=== PATIENT | male | born 2005 | race Hispanic/Latino ===

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

== ENCOUNTER 2024-09-05 18:12 | Inpatient (IN) | payer BC, MEDICAID ==
[~2024-09-05] VITALS: Ht 182.9 cm; Wt 169.7 kg
[~2024-09-05 18:12] MED LIST: ACET-66 PO
[2024-09-05] MEDS: 0.9%NACL 1000ML 1,000 ML IV ONE (18:40)
[2024-09-05] MEDS: ZOSYN 3.375GM +NS 50ML IV ONE (18:40)
[2024-09-05] MEDS: acetaMINOPHEN 500 MG TABLET PO ONE (18:40)
[2024-09-05 18:44] LABS: BASOPHILS # (AUTO) 0.05 K/uL (0.00-0.20); BASOPHILS % (AUTO) 0.2 % (0.0-5.0); EOSINOPHILS # (AUTO) 0.01 K/uL (0.00-0.70); HEMATOCRIT 45.6 % (42-54); IMMATURE GRANULOCYTE ABSOLUTE 0.15 K/uL (0-1); LYMPHOCYTES # (AUTO) 1.3 K/uL (1.0-4.8); LYMPHOCYTES % (AUTO) 5.2 % (21.0-51.0); MEAN CORPUSCULAR HEMOGLOBIN 28.9 pg (27.0-33.0); MEAN CORPUSCULAR VOLUME 85.1 fL (80-100); MONOCYTES # (AUTO) 1.1 K/uL (0.1-1.0); MONOCYTES % (AUTO) 4.4 % (3.0-13.0); NEUTROPHILS # (AUTO) 22.4 K/uL (1.8-7.7); NEUTROPHILS % (AUTO) 89.6 % (40.0-77.0); PLATELET COUNT (AUTO) 278 K/uL (130-400); RED BLOOD CELL COUNT(AUTO) 5.36 MIL/uL (4.50-6.20); RED CELL DISTRIBUTION WIDTH 13.4 % (11.0-15.5); WHITE BLOOD COUNT (AUTO) 25.1 K/uL (4.8-10.8)
[2024-09-05 19:05] LABS: CREATININE 1.2 mg/dL (0.5-1.3); POTASSIUM 3.9 mmol/L (3.5-5.1)
[2024-09-05 19:46] VITALS: TEMP 102.3
--- NOTE | 2024-09-05 19:50 | ERN ---
General Chief Complaint: Cellulitis Stated Complaint: RASH Time Seen by MD: 18:14 Time Seen by Midlevel: 18:14 Source: patient History of Present Illness Initial Comments Patient is a 18-year-old male with no significant past medical history presenting to the emergency department with fever, chills, and redness to his right lower extremity that started three weeks ago. Patient states he initially noticed the redness and swelling three weeks ago but took some antibiotics is grandma gave him. Initially the redness and swelling improved but over the last week it has progressively worsened. Today he reports developing fever and an increased redness to his right lower extremity so he decided to report to the ER for further evaluation. Allergies: Coded Allergies: No Known Drug Intolerances (Unverified Allergy, Unknown, 07/06/21) Home Meds Active Scripts Acetaminophen (Tylenol) 500 Mg Tab, 500 MG PO TID for 5 Days, #20 TAB Prov:SEEVN SCOTT SIDER 07/06/21 Past Medical History Past Medical History: Asthma Past Surgical History: None ROS Dictation CONSTITUTIONAL: Negative except for HPI HEAD/FACE: Negative except for HPI EENT: Negative except for HPI RESPIRATORY: Negative except for HPI GASTROINTESTINAL/ABDOMINAL: Negative except for HPI GENITOURINARY: Negative except for HPI MUSCULOSKELETAL: Negative except for HPI INTEGUMENTARY: Negative except for HPI NEUROLOGICAL/PSYCH: Negative except for HPI HEMATOLOGIC/LYMPHATIC: Negative except for HPI All Systems Negative, Except as noted above. 13 point review of systems assessed and all negative except for above. Physical Exam Physical Exam Dictation Vital Signs reviewed General Appearance: Alert, oriented x 3, no acute distress, ill-appearing, febrile Eyes: PERRL, pink conjunctivas, eyelid no trauma, anterior chamber with arcus senilis. Ears: Pinnas intact and no signs of trauma or erythema ear canals clear and no discharge TM no erythema Nose: No discharge, no bleeding. Oropharynx: Mouth normal, tongue pink, pharynx clear,no erythema, tonsils no exudates, no abscesses noted, mucous membrane moist Neck: Supple, non-tender, no thyromegaly, no masses, no JVD, no bruits Breast:Deferred Chest:No tenderness, no crepitus, no paradoxical movement, no retractions Lungs:Clear, well-ventilated, symmetric, no rales, no wheezing, no rhonchi, no stridor, good breath sounds bilaterally Heart: Tachycardic, regular rhythm, no murmur, no gallops Vascular: no peripheral edema, Abdomen: Soft, positive bowel sounds, nondistended, no guarding, nontender, no rebound, no masses no hepatomegaly, no splenomegaly, no Flanagan's sign, no hernias. Rectal: Deferred Genital: Deferred Neurological: Normal speech, motor function intact, sensory function intact Musculoskeletal: Neck nontender, full range of motion, back nontender, full range of motion, Extremities: nontender, full range of motion Skin: Color pink, dry, no turgor, no rash, no lacerations, no abrasions, no contusions. Lymphatic: Deferred Results Laboratory and Microbiology Lab and Micro Result Laboratory Tests Test 09/05/24 18:38 White Blood Count 25.1 K/uL (4.8-10.8) H Red Blood Count 5.36 MIL/uL (4.50-6.20) Hemoglobin 15.5 g/dL (14.0-18.0) Hematocrit 45.6 % (42-54) Mean Corpuscular Volume 85.1 fL (80-100) Mean Corpuscular Hemoglobin 28.9 pg (27.0-33.0) Mean Corpuscular Hemoglobin Concent 34.0 g/dL (32.0-36.0) Red Cell Distribution Width 13.4 % (11.0-15.5) Platelet Count 278 K/uL (130-400) Mean Platelet Volume 10.7 fL (7.5-10.5) H Immature Granulocyte % (Auto) 0.6 % (0-1) Neutrophils (%) (Auto) 89.6 % (40.0-77.0) H Lymphocytes (%) (Auto) 5.2 % (21.0-51.0) L Monocytes (%) (Auto) 4.4 % (3.0-13.0) Eosinophils (%) (Auto) 0.0 % (0.0-8.0) Basophils (%) (Auto) 0.2 % (0.0-5.0) Neutrophils # (Auto) 22.4 K/uL (1.8-7.7) H Lymphocytes # (Auto) 1.3 K/uL (1.0-4.8) Monocytes # (Auto) 1.1 K/uL (0.1-1.0) H Eosinophils # (Auto) 0.01 K/uL (0.00-0.70) Basophils # (Auto) 0.05 K/uL (0.00-0.20) Absolute Immature Granulocyte (auto 0.15 K/uL (0-1) Nucleated Red Blood Cells 0.0 % (0.0-0.19) White Cell Morphology Comment See comments Sodium Level 137 mmol/L (136-145) Potassium Level 3.9 mmol/L (3.5-5.1) Chloride Level 98 mmol/L (101-111) L Carbon Dioxide Level 31 mmol/L (21-32) Blood Urea Nitrogen 11 mg/dL (7-18) Creatinine 1.2 mg/dL (0.5-1.3) Glomerular Filtration Rate Calc 89 mL/min (>90) Random Glucose 112 mg/dL (70-105) H Lactic Acid Level 1.8 mmol/L (0.8-2.5) Total Calcium 9.8 mg/dL (8.5-10.1) Procalcitonin 0.33 ng/mL (0.05-0.5) Labs Reviewed?: Yes MDM MDM: Differential diagnosis: Cellulitis, sepsis, dehydration Rationale: Tests considered and ordered secondary to shared decision making include: Previous outside records reviewed: Old ER visits. Risk of complication and/or morbidity or mortality of patient management: None Medications-Per medication reconciliation Need for hospitalization: Patient does meet criteria for hospitalization. Need for emergency major/minor surgery: No There are no social concerns with this patient. Prescription drug management Prescriptions will include symptomatic care Patient's prior external medical records from other ER visits were reviewed by me as indicated. Prior testing and results from previous visits were reviewed. Prior tests were taken into account with medical decision making and resource utilization, independent historian/historians were used to obtain complete medical history. I independently interpreted the test that were performed, results were reviewed by me and considered findings on radiology if ordered. Medical management and examination interpretation discussions were had by me with other qualified healthcare professionals as indicated for the patient's care. ED Course Orders Procedure Category Date Status Time Cbc With Differential LAB 09/05/24 Complete 18:32 Basic Metabolic Panel LAB 09/05/24 Complete 18:32 Blood Cult DHARMESH 09/05/24 In Process 18:32 Lactic Acid LAB 09/05/24 Complete 18:32 Procalcitonin LAB 09/05/24 Complete 18:32 0.9%Nacl 1000ml (Ns PHA 09/05/24 Complete 1000ml) 19:00 Zosyn 3.375gm+Ns 50ml PHA 09/05/24 Complete (Zosyn 3.375gm+Ns 19:00 Acetaminophen 500mg PHA 09/05/24 Complete Tab (Tylenol 500mg T 19:00 Us Venous Doppler US 09/05/24 Taken Unilateral 19:02 Current Medications Medications (Trade) Dose Ordered Sig/Margaret Route PRN Reason Start Time Stop Time Status Last Admin Dose Admin Acetaminophen (TYLenol 500MG TAB) 1,000 mg ONCE ONCE PO 09/05/24 19:00 09/05/24 19:01 DC 09/05/24 18:40 Piperacillin Sod/ Tazobactam Sod (Zosyn 3.375gm+NS 50ml) 3.375 gm ONCE ONCE IV 09/05/24 19:00 09/05/24 19:01 DC 09/05/24 18:40 Sodium Chloride 1,000 ml @ 0 mls/hr ONCE ONCE IV 09/05/24 19:00 09/05/24 19:01 DC 09/05/24 18:40 Vital Signs Date Time Temp Pulse Resp B/P (MAP) Pulse Ox O2 Delivery O2 Flow Rate FiO2 09/05/24 18:40 102.7 09/05/24 18:37 102.7 120 20 133/48 98 Room Air* 0 21 09/05/24 18:25 102.6 121 20 128/79 100 Room Air 0 DX & DISP Disposition: Inpatient Decision to Admit Date: Sep 05, 2024 Decision to Admit Time: 19:34 Departure Impression: Primary Impression: Sepsis Additional Impressions: Cellulitis of right lower extremity, Leukocytosis Condition: Stable Referrals: NONE (PCP) I have reviewed the case, and I agree with, Diagnosis and Plan I performed the substantive portion of the visit. I have reviewed and personally made and approve the management plan that is documented in the note by myself or the RICH. I acknowledge for responsibility for the patient's management plan. RADHA JOYCE Sep 05, 2024 19:50
[2024-09-05] MEDS ORDERED: PoTASSium chloRIDE 20MEQ ER 20 MEQ ERTAB PO PRN (20:30)
[2024-09-05] MEDS ORDERED: GLUCAGON 1MG KIT 1 MG ML IM PRN (20:30)
[2024-09-05] MEDS ORDERED: PoTASSium chloRIDE 20MEQ/100ML 100 ML IV PRN (20:30)
[2024-09-05] MEDS ORDERED: DEXTROSE 50%-WATER 50 ML DISP.SYRIN IV PRN (20:30)
[2024-09-05] MEDS ORDERED: LACTULOSE 20 GM/30 ML UDCUP PO PRN (20:30)
[2024-09-05] MEDS ORDERED: hydrALAZine 20MG/ML VIAL IV PRN (20:30)
[2024-09-05] MEDS ORDERED: ondanSETRON 4MG INJ IVP PRN (20:30)
[2024-09-05] MEDS ORDERED: PoTASSium chl 10% ELIXIR 20MEQ 20 MEQ/15 ML UDCUP PO PRN (20:30)
[2024-09-05] MEDS ORDERED: HYDROcodone/APAP 5/325 1 TAB TABLET PO PRN (20:30)
[2024-09-05] MEDS ORDERED: VANCOMYCIN PROTOCOL PER PHARMACY IV SCH (20:30)
[2024-09-05] MEDS ORDERED: MAGNESIUM 2GM PREMIX 50ML 50 ML IV PRN (20:30)
[2024-09-05] MEDS ORDERED: acetaMINOPHEN 650 MG SUPPOSITORY RC PRN (20:30)
[2024-09-05] MEDS ORDERED: TEMAZepam 15 MG CAPSULE PO PRN (20:30)
--- NOTE | 2024-09-05 20:31 | HP ---
[facility] HISTORY AND PHYSICAL Date of Service: Sep 05, 2024 Time of Service: 20:30 Attending/supervising physician Dr. Townsend and Dr. Adolfo Middleton HISTORY OF PRESENT ILLNESS: Mr. Cha is a 18-year-old male with history of asthma and obesity who presented to [facility] ED for evaluation of fever, chills, and redness to his right lower extremity that started three weeks ago. The patient stated he initially noticed the redness and swelling three weeks ago but took some antibiotics is grandma gave him. Initially the redness and swelling improved but over the last week it has progressively worsened. Today he reported developing fever and an increased redness to his right lower extremity so he decided to report to the ER for further evaluation. The patient presented to the ED febrile, tachycardic, and appeared ill. ED administered Zosyn 3.375 G, NS1 L, Tylenol 1 g. ED provider request patient be admitted with the diagnosis of cellulitis to the right lower extremity, leukocytosis, and sepsis. I went to assess the patient at bedside. The patient appeared comfortable, in no distress. Right lower extremity does have localized erythema. No drainage noted. I informed patient, grammar, and mother of a labs, diagnostics, and plan of care. I answered their questions. They verbalized understanding and are in agreement with the plan. Plan and assessment as listed below. REVIEW OF SYSTEMS 12-point ROS reviewed with patient. All pertinent positives are mentioned above. Otherwise negative, noncontributory, or non-pertinent. PAST MEDICAL HISTORY: Asthma and obesity PAST SURGICAL HISTORY: None PAST SOCIAL HISTORY: Denied alcohol, tobacco, illicit drug use. FAMILY HISTORY: Morbid obesity Coded Allergies: No Known Drug Intolerances (Unverified Allergy, Unknown, 07/06/21) PHYSICAL EXAM GENERAL APPEARANCE: The patient is awake, alert, and oriented, in no acute cardiopulmonary distress. NEUROLOGICAL: Cranial nerves II-XII grossly intact. Motor is 5/5 in bilateral upper and lower extremities proximal to distal. No sensory deficits. HEENT: Face is symmetric. Pupils are equal and reactive. Extraocular movements are intact. NECK: Supple. No JVD. No thyromegaly. No submental, submandibular, pre- /postauricular, occipital or supraclavicular lymphadenopathy. CHEST: Normal chest expansion. No Telemetry. LUNGS: Absence of any rales, rhonchi or any wheezing. CARDIOVASCULAR: Regular. S1 and S2 normal. No appreciable rubs, murmurs or gallops. ABDOMEN: Obese. Soft, nontender, and nondistended. There is no rebound, voluntary guarding, or rigidity. : Deferred. No Umaña. EXTREMITIES: Non-edematous and not cyanotic. No clubbing. Good capillary refill. Right lower extremity has an area of erythema. SKIN: No skin breakdown. Vital Sign (Last 24 Hours) 09/05/24 09/05/24 18:37 18:40 Temp 102.7 Pulse 120 Resp 20 B/P (MAP) 133/48 Pulse Ox 98 O2 Delivery Room Air* O2 Flow Rate 0 FiO2 21 LABS: Laboratory: Test 09/05/24 18:38 Range/Units White Blood Count 25.1 H 4.8-10.8 K/uL Red Blood Count 5.36 4.50-6.20 MIL/uL Hemoglobin 15.5 14.0-18.0 g/dL Hematocrit 45.6 42-54 % Mean Corpuscular Volume 85.1 80-100 fL Mean Corpuscular Hemoglobin 28.9 27.0-33.0 pg Mean Corpuscular Hemoglobin Concent 34.0 32.0-36.0 g/dL Red Cell Distribution Width 13.4 11.0-15.5 % Platelet Count 278 130-400 K/uL Mean Platelet Volume 10.7 H 7.5-10.5 fL Immature Granulocyte % (Auto) 0.6 0-1 % Neutrophils (%) (Auto) 89.6 H 40.0-77.0 % Lymphocytes (%) (Auto) 5.2 L 21.0-51.0 % Monocytes (%) (Auto) 4.4 3.0-13.0 % Eosinophils (%) (Auto) 0.0 0.0-8.0 % Basophils (%) (Auto) 0.2 0.0-5.0 % Neutrophils # (Auto) 22.4 H 1.8-7.7 K/uL Lymphocytes # (Auto) 1.3 1.0-4.8 K/uL Monocytes # (Auto) 1.1 H 0.1-1.0 K/uL Eosinophils # (Auto) 0.01 0.00-0.70 K/uL Basophils # (Auto) 0.05 0.00-0.20 K/uL Absolute Immature Granulocyte (auto 0.15 0-1 K/uL Nucleated Red Blood Cells 0.0 0.0-0.19 % White Cell Morphology Comment See comments Sodium Level 137 136-145 mmol/L Potassium Level 3.9 3.5-5.1 mmol/L Chloride Level 98 L 101-111 mmol/L Carbon Dioxide Level 31 21-32 mmol/L Blood Urea Nitrogen 11 7-18 mg/dL Creatinine 1.2 0.5-1.3 mg/dL Glomerular Filtration Rate Calc 89 >90 mL/min Random Glucose 112 H 70-105 mg/dL Lactic Acid Level 1.8 0.8-2.5 mmol/L Total Calcium 9.8 8.5-10.1 mg/dL Procalcitonin 0.33 0.05-0.5 ng/mL Current Medications Medications (Trade) Dose Ordered Sig/Margaret Route PRN Reason Start Time Stop Time Status Last Admin Dose Admin Acetaminophen (TYLenol 325MG TAB) 650 mg Q6H PRN PO FEVER/MILD PAIN LEVEL 1-3 09/05/24 20:30 10/05/24 20:29 Acetaminophen (TYLenol 650MG SUPPOSITORY) 650 mg Q6H PRN RC FEVER / MILD PAIN 1-3 IF NPO 09/05/24 20:30 10/05/24 20:29 Acetaminophen/ Hydrocodone Bitart (NORco 5/325MG) 1 tab Q6H PRN PO MILD PAIN (1-3) 09/05/24 20:30 09/10/24 20:29 Cefepime HCl (MAXipime 2 gm vial) 2 gm Q8H IVPB 09/06/24 00:00 09/16/24 00:00 Docusate Sodium (COLace 100MG CAP) 100 mg BID PRN PO c 09/05/24 20:30 10/05/24 20:29 Enoxaparin Sodium (Lovenox) 40 mg DAILY SQ 09/06/24 09:00 10/06/24 08:59 Hydralazine HCl (APRESOLine 20MG INJ) 10 mg Q2H PRN IV SBP GREATER THAN 160 09/05/24 20:30 10/05/24 20:29 Ibuprofen (moTRIN) 600 mg Q6H PRN PO PAIN LEVEL 4 TO 6 09/05/24 20:30 10/05/24 20:29 Lactulose (Constulose 20gm/ 30ml Udcup) 20 gm Q6H PRN PO CONSTIPATION 09/05/24 20:30 10/05/24 20:29 Ondansetron HCl (zoFRAN 4MG INJ) 4 mg Q6H PRN IVP NAUSEA/VOMITING 09/05/24 20:30 10/05/24 20:29 Pantoprazole Sodium (PROTonix 40MG TAB) 40 mg DAILY PO 09/06/24 09:00 10/06/24 08:59 Temazepam (restORIL 15 MG CAP) 15 mg HS PRN PO INSOMNIA/SLEEP 09/05/24 20:30 10/05/24 20:29 Vancomycin HCl (Vancomycin Protocol) 1 each AD IV 09/05/24 20:30 09/19/24 20:29 UNV DIAGNOSTICS / RADIOLOGY: [ ] ASSESSMENT: Right lower extremity cellulitis, POA, temporary responsive to self medicated antibiotic Acute sepsis without septic shock Leukocytosis Hypochloremia Acute kidney injury, GFR 89 Hyperglycemia Obesity, BMI 37.3 PLAN: -Admit to medical floor. -Start vancomycin per pharmacy protocol. -Start cefepime 2 g IV q.8 hours. (ED administered Zosyn 3.375 g) -NS 1 L at 125 mL an hour times one dose. (ED administered 1 L of NS bolus) -PRN medications for: Pain management, fever, hypertension, N/V, constipation. -Glucometer checks AC & HS needed with insulin regular sliding scale coverage as needed. -Blood pressure checks every 4 hours and as needed. -Reconcile home medications once available. - Monitor renal and liver function. -Monitor electrolytes and replace PRN -AM labs: CBC, BMP, mag, phos, TSH, A1C. -GI and DVT prophylaxis: Protonix and Lovenox ADVANCED CARE PLANNING 1. Which of the following were discussed? Hospice Care - No Therapeutic options - Yes Advance Directives - Yes Other discussions - 2. Discussed with who? Patient 3. Voluntary nature of this service was explained to the patient? Yes 4. Amount of time spent - __ over 35 minutes 5. Reviewed by Physician? (if this service was performed by NPP) Yes ATTESTATION BY PHYSICIAN I have seen and examined the patient. I reviewed the documentation, medical decision making, and treatment plan as noted by the advanced practice provider above. I agree with the findings and plan of care. NANCI SPRINGER [facility] Sep 05, 2024 20:31
[2024-09-05] MEDS: VANCOMYCIN 2GM/500 ML BAG 500 ML IV ONE (21:22)
--- NOTE | 2024-09-05 21:38 | HMCIMG ---
ULTRASOUND VENOUS DOPPLER RIGHT LOWER EXTREMITY INDICATION: Pain and swelling. TECHNIQUE: Routine grayscale and color Doppler ultrasound of the right lower extremity veins performed. COMPARISON: None. FINDINGS: Examination provided for interpretation at 9:35 PM on 09/05/2024. The demonstrated veins of the right lower extremity including the common femoral vein, femoral vein, and popliteal vein are associated with normal compressibility, augmentation, and flow. Normal respiratory variation was identified. No evidence for echogenic intraluminal thrombus. Slightly enlarged slightly vascular right groin lymph node retains its normal reniform shape and fatty hilum. IMPRESSION: No evidence for deep venous thrombosis.
[2024-09-05 21:50] VITALS: O2SAT 98
[2024-09-05] MEDS: ibuPROFEN 600 MG TABLET PO PRN (22:12)
[2024-09-06] VITALS (7 sets, daily range): BP systolic 101–145; BP diastolic 63–79; PULSE 63–101; RESP 16–21; TEMP 97.5–99.3; O2SAT 99–100
[2024-09-06] MEDS: ceFEPime HCL 2 GM VIAL IVPB SCH (02:16)
[2024-09-06] MEDS: 0.9%NACL 1000ML 1,000 ML IV ONE (04:44)
[2024-09-06 06:15] LABS: HEMATOCRIT 42.5 % (42-54); MEAN CORPUSCULAR HEMOGLOBIN 28.9 pg (27.0-33.0); MEAN CORPUSCULAR HGB CONC 33.9 g/dL (32.0-36.0); MEAN CORPUSCULAR VOLUME 85.3 fL (80-100); RED BLOOD CELL COUNT(AUTO) 4.98 MIL/uL (4.50-6.20); RED CELL DISTRIBUTION WIDTH 13.6 % (11.0-15.5); WHITE BLOOD COUNT (AUTO) 13.5 K/uL (4.8-10.8)
[2024-09-06 06:38] LABS: CREATININE 0.9 mg/dL (0.5-1.3); MAGNESIUM 1.9 mg/dL (1.80-2.40); PHOSPHORUS 3.3 mg/dL (2.5-4.9); THYROID STIMULATING HORMONE 0.53 uIU/mL (0.36-3.74)
[2024-09-06] MEDS: VANCOMYCIN 1.75 GM/250 ML BAG 250 ML IV SCH (09:32)
[2024-09-06] MEDS: PANTOPrazole 40 MG TAB DR PO SCH (09:32)
[2024-09-06] MEDS: ENOXAPARIN SODIUM 40 MG/0.4 ML SYRINGE SQ SCH (09:33)
--- NOTE | 2024-09-06 14:36 | PN ---
[facility] PROGRESS NOTE Date of Service: Sep 06, 2024 Time of Service: 14:34 SUBJECTIVE: [ ] Mr. Cha is a 18-year-old male with history of asthma and obesity who presented to [facility] ED for evaluation of fever, chills, and redness to his right lower extremity that started three weeks ago. Doppler of the lower extremities no evidence of DVT. 09/06 patient is seen and examined at bedside, case discussed with the RN, no acute events overnight, patient comfortable, no pain to the leg, getting IV fluids, IV antibiotics. Leukocytosis improving, WBC today 13.5. REVIEW OF SYSTEMS 12-point ROS reviewed with patient. All pertinent positives are mentioned above. Otherwise negative, noncontributory, or non-pertinent. PHYSICAL EXAM GENERAL APPEARANCE: The patient is awake, alert, and oriented, in no acute ca rdiopulmonary distress. NEUROLOGICAL: Cranial nerves II-XII grossly intact. Motor is 5/5 in bilateral upper and lower extremities proximal to distal. No sensory deficits. HEENT: Face is symmetric. Pupils are equal and reactive. Extraocular movements are intact. NECK: Supple. No JVD. No thyromegaly. No submental, submandibular, pre- /postauricular, occipital or supraclavicular lymphadenopathy. CHEST: Normal chest expansion. No Telemetry. LUNGS: Absence of any rales, rhonchi or any wheezing. CARDIOVASCULAR: Regular. S1 and S2 normal. No appreciable rubs, murmurs or gallops. ABDOMEN: Obese. Soft, nontender, and nondistended. There is no rebound, voluntary guarding, or rigidity. : Deferred. No Umaña. EXTREMITIES: Non-edematous and not cyanotic. No clubbing. Good capillary refill. Right lower extremity has an area of erythema, improving. SKIN: No skin breakdown. Vital Signs (last 8hr) Date Time Temp Pulse Resp B/P (MAP) Pulse Ox O2 Delivery O2 Flow Rate FiO2 09/06/24 12:00 99.0 86 20 126/77 100 Room Air 09/06/24 08:00 98.4 89 19 112/65 99 Room Air LABS: Laboratory: Test 09/06/24 06:06 09/05/24 18:38 Range/Units White Blood Count 13.5 #H 4.8-10.8 K/uL Red Blood Count 4.98 4.50-6.20 MIL/uL Hemoglobin 14.4 14.0-18.0 g/dL Hematocrit 42.5 42-54 % Mean Corpuscular Volume 85.3 80-100 fL Mean Corpuscular Hemoglobin 28.9 27.0-33.0 pg Mean Corpuscular Hemoglobin Concent 33.9 32.0-36.0 g/dL Red Cell Distribution Width 13.6 11.0-15.5 % Platelet Count 198 # 130-400 K/uL Mean Platelet Volume 10.6 H 7.5-10.5 fL Nucleated Red Blood Cells 0.0 0.0-0.19 % Sodium Level 137 136-145 mmol/L Potassium Level 4.0 3.5-5.1 mmol/L Chloride Level 104 101-111 mmol/L Carbon Dioxide Level 25 21-32 mmol/L Blood Urea Nitrogen 11 7-18 mg/dL Creatinine 0.9 0.5-1.3 mg/dL Glomerular Filtration Rate Calc 125 >90 mL/min Random Glucose 99 70-105 mg/dL Total Calcium 8.5 8.5-10.1 mg/dL Phosphorus Level 3.3 2.5-4.9 mg/dL Magnesium Level 1.90 1.80-2.40 mg/dL Thyroid Stimulating Hormone (TSH) 0.53 0.36-3.74 uIU/mL Immature Granulocyte % (Auto) 0.6 0-1 % Neutrophils (%) (Auto) 89.6 H 40.0-77.0 % Lymphocytes (%) (Auto) 5.2 L 21.0-51.0 % Monocytes (%) (Auto) 4.4 3.0-13.0 % Eosinophils (%) (Auto) 0.0 0.0-8.0 % Basophils (%) (Auto) 0.2 0.0-5.0 % Neutrophils # (Auto) 22.4 H 1.8-7.7 K/uL Lymphocytes # (Auto) 1.3 1.0-4.8 K/uL Monocytes # (Auto) 1.1 H 0.1-1.0 K/uL Eosinophils # (Auto) 0.01 0.00-0.70 K/uL Basophils # (Auto) 0.05 0.00-0.20 K/uL Absolute Immature Granulocyte (auto 0.15 0-1 K/uL White Cell Morphology Comment See comments Lactic Acid Level 1.8 0.8-2.5 mmol/L Procalcitonin 0.33 0.05-0.5 ng/mL Current Medications Medications (Trade) Dose Ordered Sig/Margaret Route PRN Reason Start Time Stop Time Status Last Admin Dose Admin Acetaminophen (TYLenol 325MG TAB) 650 mg Q6H PRN PO FEVER/MILD PAIN LEVEL 1-3 09/05/24 20:30 10/05/24 20:29 Acetaminophen (TYLenol 650MG SUPPOSITORY) 650 mg Q6H PRN RC FEVER / MILD PAIN 1-3 IF NPO 09/05/24 20:30 10/05/24 20:29 Acetaminophen/ Hydrocodone Bitart (NORco 5/325MG) 1 tab Q6H PRN PO MILD PAIN (1-3) 09/05/24 20:30 09/10/24 20:29 Cefepime HCl (MAXipime 2 gm vial) 2 gm Q8H IVPB 09/06/24 00:00 09/16/24 00:00 09/06/24 08:04 2 GM Dextrose (D50w) 50 ml AD PRN IV HYPOGLYCEMIA PROTOCOL 09/05/24 20:30 10/05/24 20:29 Docusate Sodium (COLace 100MG CAP) 100 mg BID PRN PO c 09/05/24 20:30 10/05/24 20:29 Enoxaparin Sodium (Lovenox) 40 mg DAILY SQ 09/06/24 09:00 10/06/24 08:59 09/06/24 09:33 40 MG Glucagon (Glucagon 1mg Kit) 1 mg AD PRN IM HYPOGLYCEMIA PROTOCOL 09/05/24 20:30 10/05/24 20:29 Hydralazine HCl (APRESOLine 20MG INJ) 10 mg Q2H PRN IV SBP GREATER THAN 160 09/05/24 20:30 10/05/24 20:29 Ibuprofen (moTRIN) 600 mg Q6H PRN PO PAIN LEVEL 4 TO 6 09/05/24 20:30 10/05/24 20:29 09/05/24 22:12 600 MG Lactulose (Constulose 20gm/ 30ml Udcup) 20 gm Q6H PRN PO CONSTIPATION 09/05/24 20:30 10/05/24 20:29 Magnesium Sulfate 50 ml @ 0 mls/hr PROTOCOL PRN IV MAGNESIUM PROTOCOL 09/05/24 20:30 10/05/24 20:29 Ondansetron HCl (zoFRAN 4MG INJ) 4 mg Q6H PRN IVP NAUSEA/VOMITING 09/05/24 20:30 10/05/24 20:29 Pantoprazole Sodium (PROTonix 40MG TAB) 40 mg DAILY PO 09/06/24 09:00 10/06/24 08:59 09/06/24 09:32 40 MG Potassium Chloride 100 ml @ 100 mls/hr AD PRN IV POTASSIUM PROTOCOL 09/05/24 20:30 10/05/24 20:29 Potassium Chloride (K-Dur/Klor-Con 20meq) 20 meq AD PRN PO POTASSIUM PROTOCOL 09/05/24 20:30 10/05/24 20:29 Potassium Chloride (KCl 10% Elixir 20meq/15ml) 20 meq AD PRN PO POTASSIUM PROTOCOL 09/05/24 20:30 10/05/24 20:29 Temazepam (restORIL 15 MG CAP) 15 mg HS PRN PO INSOMNIA/SLEEP 09/05/24 20:30 10/05/24 20:29 Vancomycin HCl 250 ml @ 125 mls/hr Q12H IV 09/06/24 09:00 09/16/24 08:59 09/06/24 09:32 125 MLS/HR Vancomycin HCl (Vancomycin Protocol) 1 each AD IV 09/05/24 20:30 09/19/24 20:29 DIAGNOSTICS / RADIOLOGY: [ ] ASSESSMENT: Right lower extremity cellulitis, POA, temporary responsive to self medicated antibiotic Acute sepsis without septic shock Leukocytosis Hypochloremia Acute kidney injury, GFR 89 Hyperglycemia Obesity, BMI 37.3 PLAN: -Admit to medical floor. -continue broad-spectrum antibiotics -continue supportive care with IV fluids -PRN medications for: Pain management, fever, hypertension, N/V, constipation. -Glucometer checks AC & HS needed with insulin regular sliding scale coverage as needed. -Blood pressure checks every 4 hours and as needed. -Reconcile home medications once available. - Monitor renal and liver function. -Monitor electrolytes and replace PRN -AM labs: CBC, BMP, mag, phos, TSH, A1C. -GI and DVT prophylaxis: Protonix and Lovenox Disposition: Anticipate discharge home in the next 24 hours. EBEN NI MD Sep 06, 2024 14:36
--- NOTE | 2024-09-06 20:20 | NUR ---
cm note pt lives with mother, independent with adls/ambulation. no dme. no home services. dc plan is back home pt is college student. no dc needs. Addendum: 09/06/24 at 2022 by CARSON RESENDIZ CM Amended: Links added.
[2024-09-07] VITALS (7 sets, daily range): BP systolic 122–138; BP diastolic 60–79; PULSE 60–80; RESP 12–20; TEMP 97.5–98.7; O2SAT 100
[2024-09-07 06:10] LABS: HEMATOCRIT 42.8 % (42-54); MEAN CORPUSCULAR HEMOGLOBIN 28.6 pg (27.0-33.0); MEAN CORPUSCULAR HGB CONC 32.9 g/dL (32.0-36.0); MEAN CORPUSCULAR VOLUME 86.8 fL (80-100); RED BLOOD CELL COUNT(AUTO) 4.93 MIL/uL (4.50-6.20); RED CELL DISTRIBUTION WIDTH 13.8 % (11.0-15.5); WHITE BLOOD COUNT (AUTO) 7.6 K/uL (4.8-10.8)
[2024-09-07 07:18] LABS: ALBUMIN 3.1 g/dL (3.5-5.0); BILIRUBIN,TOTAL 0.3 mg/dL (0.2-1.0); MAGNESIUM 2.2 mg/dL (1.80-2.40); POTASSIUM 4.2 mmol/L (3.5-5.1); TOTAL PROTEIN, SERUM 6.8 g/dL (6.0-8.3)
[2024-09-07] MEDS: acetaMINOPHEN 325 MG TAB PO PRN (10:04)
--- NOTE | 2024-09-07 19:40 | PN ---
[facility] PROGRESS NOTE Date of Service: Sep 07, 2024 Time of Service: 19:36 SUBJECTIVE: [ ] Mr. Cha is a 18-year-old male with history of asthma and obesity who presented to [facility] for evaluation of fever, chills, and redness to his right lower extremity that started three weeks ago. Doppler of the lower extremities no evidence of DVT. 09/06 patient is seen and examined at bedside, case discussed with the RN, no acute events overnight, patient comfortable, no pain to the leg, getting IV fluids, IV antibiotics. Leukocytosis improving, WBC today 13.5. 09/07 Pt seen at bedside, no acute events overnight. Erythema appears to have receded from borders previously drawn, patient reports improvement in symptoms. Will continue with IV antibiotics, if patient continues to improve, possibly good candidate for discharge tomorrow REVIEW OF SYSTEMS 12-point ROS reviewed with patient. All pertinent positives are mentioned above. Otherwise negative, noncontributory, or non-pertinent. PHYSICAL EXAM GENERAL APPEARANCE: The patient is awake, alert, and oriented, in no acute cardiopulmonary distress. NEUROLOGICAL: Cranial nerves II-XII grossly intact. Motor is 5/5 in bilateral upper and lower extremities proximal to distal. No sensory deficits. HEENT: Face is symmetric. Pupils are equal and reactive. Extraocular movements are intact. NECK: Supple. No JVD. No thyromegaly. No submental, submandibular, pre- /postauricular, occipital or supraclavicular lymphadenopathy. CHEST: Normal chest expansion. No Telemetry. LUNGS: Absence of any rales, rhonchi or any wheezing. CARDIOVASCULAR: Regular. S1 and S2 normal. No appreciable rubs, murmurs or gallops. ABDOMEN: Obese. Soft, nontender, and nondistended. There is no rebound, voluntary guarding, or rigidity. : Deferred. No [place]. EXTREMITIES: Non-edematous and not cyanotic. No clubbing. Good capillary refill. Right lower extremity has an area of erythema, improving. SKIN: No skin breakdown. Vital Signs (last 8hr) Date Time Temp Pulse Resp B/P (MAP) Pulse Ox O2 Delivery O2 Flow Rate FiO2 09/07/24 16:00 98.2 80 18 122/73 100 Room Air 21 09/07/24 12:00 98.1 70 18 138/79 100 Room Air 21 LABS: Laboratory: Test 09/07/24 07:34 09/07/24 06:02 09/06/24 06:06 Range/Units Vancomycin Level Trough 8.8 L 10.0-20.0 UG/ML White Blood Count 7.6 # 4.8-10.8 K/uL Red Blood Count 4.93 4.50-6.20 MIL/uL Hemoglobin 14.1 14.0-18.0 g/dL Hematocrit 42.8 42-54 % Mean Corpuscular Volume 86.8 80-100 fL Mean Corpuscular Hemoglobin 28.6 27.0-33.0 pg Mean Corpuscular Hemoglobin Concent 32.9 32.0-36.0 g/dL Red Cell Distribution Width 13.8 11.0-15.5 % Platelet Count 197 130-400 K/uL Mean Platelet Volume 10.8 H 7.5-10.5 fL Nucleated Red Blood Cells 0.0 0.0-0.19 % Sodium Level 138 136-145 mmol/L Potassium Level 4.2 3.5-5.1 mmol/L Chloride Level 106 101-111 mmol/L Carbon Dioxide Level 27 21-32 mmol/L Blood Urea Nitrogen 9 7-18 mg/dL Creatinine 1.0 0.5-1.3 mg/dL Glomerular Filtration Rate Calc 111 >90 mL/min Random Glucose 116 H 70-105 mg/dL Total Calcium 8.5 8.5-10.1 mg/dL Magnesium Level 2.20 1.80-2.40 mg/dL Total Bilirubin 0.3 0.2-1.0 mg/dL Aspartate Amino Transf (AST/SGOT) 23 10-37 U/L Alanine Aminotransferase (ALT/SGPT) 20 12-78 U/L Alkaline Phosphatase 98 50-136 U/L Total Protein 6.8 6.0-8.3 g/dL Albumin 3.1 L 3.5-5.0 g/dL Phosphorus Level 3.3 2.5-4.9 mg/dL Thyroid Stimulating Hormone (TSH) 0.53 0.36-3.74 uIU/mL Current Medications Medications (Trade) Dose Ordered Sig/Margaret Route PRN Reason Start Time Stop Time Status Last Admin Dose Admin Acetaminophen (TYLenol 325MG TAB) 650 mg Q6H PRN PO FEVER/MILD PAIN LEVEL 1-3 09/05/24 20:30 3/31/25 20:29 09/07/24 10:04 650 MG Acetaminophen (TYLenol 650MG SUPPOSITORY) 650 mg Q6H PRN RC FEVER / MILD PAIN 1-3 IF NPO 09/05/24 20:30 10/05/24 20:29 Acetaminophen/ Hydrocodone Bitart (NORco 5/325MG) 1 tab Q6H PRN PO MODERATE PAIN (4-6) 09/05/24 20:30 09/10/24 20:29 Cefepime HCl (MAXipime 2 gm vial) 2 gm Q8H IVPB 09/06/24 00:00 09/16/24 00:00 09/07/24 15:10 2 GM Dextrose (D50w) 50 ml AD PRN IV HYPOGLYCEMIA PROTOCOL 09/05/24 20:30 10/05/24 20:29 Docusate Sodium (COLace 100MG CAP) 100 mg BID PRN PO c 09/05/24 20:30 10/05/24 20:29 Enoxaparin Sodium (Lovenox) 40 mg DAILY SQ 09/06/24 09:00 10/06/24 08:59 09/07/24 08:10 40 MG Glucagon (Glucagon 1mg Kit) 1 mg AD PRN IM HYPOGLYCEMIA PROTOCOL 09/05/24 20:30 10/05/24 20:29 Hydralazine HCl (APRESOLine 20MG INJ) 10 mg Q2H PRN IV SBP GREATER THAN 160 09/05/24 20:30 10/05/24 20:29 Ibuprofen (moTRIN) 600 mg Q6H PRN PO PAIN LEVEL 4 TO 6 09/05/24 20:30 09/07/24 06:15 DC 09/06/24 14:54 600 MG Lactulose (Constulose 20gm/ 30ml Udcup) 20 gm Q6H PRN PO CONSTIPATION 09/05/24 20:30 10/05/24 20:29 Magnesium Sulfate 50 ml @ 0 mls/hr PROTOCOL PRN IV MAGNESIUM PROTOCOL 09/05/24 20:30 10/05/24 20:29 Ondansetron HCl (zoFRAN 4MG INJ) 4 mg Q6H PRN IVP NAUSEA/VOMITING 09/05/24 20:30 10/05/24 20:29 Pantoprazole Sodium (PROTonix 40MG TAB) 40 mg DAILY PO 09/06/24 09:00 10/06/24 08:59 09/07/24 08:09 40 MG Potassium Chloride 100 ml @ 100 mls/hr AD PRN IV POTASSIUM PROTOCOL 09/05/24 20:30 10/05/24 20:29 Potassium Chloride (K-Dur/Klor-Con 20meq) 20 meq AD PRN PO POTASSIUM PROTOCOL 09/05/24 20:30 10/05/24 20:29 Potassium Chloride (KCl 10% Elixir 20meq/15ml) 20 meq AD PRN PO POTASSIUM PROTOCOL 09/05/24 20:30 10/05/24 20:29 Temazepam (restORIL 15 MG CAP) 15 mg HS PRN PO INSOMNIA/SLEEP 09/05/24 20:30 10/05/24 20:29 Vancomycin HCl 250 ml @ 125 mls/hr Q12H IV 09/06/24 09:00 09/16/24 08:59 09/07/24 10:04 125 MLS/HR Vancomycin HCl (Vancomycin Protocol) 1 each AD IV 09/05/24 20:30 09/19/24 20:29 DIAGNOSTICS / RADIOLOGY: [ ] ASSESSMENT: Right lower extremity cellulitis, POA, temporary responsive to self medicated antibiotic Acute sepsis without septic shock Leukocytosis Hypochloremia Acute kidney injury, GFR 89 Hyperglycemia Obesity, BMI 37.3 PLAN: -continue broad-spectrum antibiotics -continue supportive care with IV fluids -PRN medications for: Pain management, fever, hypertension, N/V, constipation. -Glucometer checks AC & HS needed with insulin regular sliding scale coverage as needed. -Blood pressure checks every 4 hours and as needed. -Reconcile home medications once available. -Monitor renal and liver function. -Monitor electrolytes and replace PRN -GI and DVT prophylaxis: Protonix and Lovenox Disposition: Continue IV antibiotics PABLO CRAFT MD Sep 07, 2024 19:40
[2024-09-07] MEDS: DiphenhydrAMINE 2% CREAM 30 GM TP PRN (22:31)
[2024-09-08 00:10] VITALS: BP 140/68; PULSE 77; RESP 20; TEMP 98.4
[2024-09-08 04:00] VITALS: BP 137/65; PULSE 78; RESP 20; TEMP 97.8
[2024-09-08 08:00] VITALS: BP 140/72; PULSE 73; RESP 20; TEMP 98.2; O2SAT 97
[2024-09-08] MEDS: doCUSate SODIUM 100 MG CAP PO PRN (11:08)
[2024-09-08 12:00] VITALS: BP 143/85; PULSE 70; RESP 18; TEMP 97.6
[2024-09-08] MEDS ORDERED: AMOX1TAB16 PO (12:59)
--- NOTE | 2024-09-08 16:45 | NUR ---
DISCHARGE NOTE ID and IV bands removed. Discharge instructions explained to patient and family. Written instructions provided. Personal belonging packed and taken by patient. Patient taken down via wheelchair to private vehicle.
== END 2024-09-08 16:50 | disposition home or self-care (01) | DRG 872 ==
LOC: EDH 18:12 → EDHIP 20:13 → 3BH 21:43
PROVIDERS: ADMIT Internal Medicine; ATTEND Internal Medicine
DX: A41.9 Sepsis, unspecified organism (principal); L03.115 Cellulitis of right lower limb; N17.9 Acute kidney failure, unspecified; Z68.43 Body mass index [BMI] 50.0-59.9, adult; I10 Essential (primary) hypertension; E66.9 Obesity, unspecified; E87.8 Other disorders of electrolyte and fluid balance, not elsewhere classified; J45.909 Unspecified asthma, uncomplicated; R73.9 Hyperglycemia, unspecified; Z79.899 Other long term (current) drug therapy
CPT/HCPCS: 36415; 80048; 80053; 80202; 83605; 83735; 84100; 84145; 84443; 85025; 85027; 87040; 93971; 96365; 99285; G0378; J0692; J1650; J2543; J7030; J3370

== ENCOUNTER 2025-03-30 03:12 | Emergency (ER) | payer BC ==
[~2025-03-30] VITALS: Ht 182.9 cm; Wt 122.5 kg
[~2025-03-30 03:12] MED LIST changes: -ACET-66 PO; +AMOX1TAB16 PO
--- NOTE | 2025-03-30 03:23 | ERN ---
ED Note History of Present Illness Stated Complaint: C/O PAIN TO RIGHT TOE Chief Complaint: Toe Pain/Injury Time Seen by MD: 03:17 Dictation: This is a morbidly obese 19-year-old male who stated that he sustained an injury to the right toe and developed swelling and pain also some bleeding just prior to presentation and hence he came into the ER for further evaluation. He was accompanied by his mother. He stated that when he was walking on the tile there was water and his right foot and toe got caught while he moved forward in the right great toe turned and all the weight fell on it. This caused injury to the great toe bone as well as the nail He never really got hurt anywhere else. No loss of consciousness not on any blood thinners. He denied drinking any alcohol. He is a marijuana user Temperature 96.9 pulse 66 respirations 20 blood pressure 132/71 with a pulse oximetry of 97% on room air Allergies: Coded Allergies: No Known Drug Intolerances (Unverified Allergy, Unknown, 07/06/21) Home Meds Active Scripts Amoxicillin/Potassium Clav (Amox Tr-K Clv 875-125 mg Tab) 875 Mg-125 Mg Tablet, 1 TAB PO BID for 10 Days, #20 TAB 0 Refills Prov:PABLO CRAFT MD 09/08/24 Past Medical History Past Medical History: Asthma Surgical History: None Family History: Negative RN Note Reviewed/Agreed w/PFSH: Yes Review of System Dictation Constitutional: Negative for fever,chills, and weight loss Eyes: Negative for injury, pain,redness, and discharge ENT: Negative for injury,pain or swelling Cardiovascular: Negative for chest pain, palpitations, and edema Respiratory: Negative for shortness of breath, cough, and wheezing, Abdomen/GI: Negative for abdominal pain, nausea, vomiting, diarrhea, and constipation Back: Negative for injury and pain : Negative for injury, bleeding and discharge MS/Extremity: Positive for injury and swelling and bleeding of the right great toe Skin: Negative for rash, and discoloration Neuro: Negative for headache, weakness, numbness, tingling, and seizure Psych: Negative for suicide ideation, homicidal ideation, and hallucinations Initial Vital Sign VS Vital Signs Date Time Temp Pulse Resp B/P (MAP) Pulse Ox O2 Delivery O2 Flow Rate FiO2 03/30/25 03:14 97.0 66 20 132/71 97 Room Air Physical Exam Dictation General: awake, alert, NAD morbidly obese male Head/Face: Normocephalic, atraumatic Eyes: PERRL, EOMI, vision at baseline ENT: oral cavity clear, TMs clear, no signs of infection Neck: Trachea midline, supple, no nuchal rigidity Cardiovascular: RRR, normal S1/S2, No MRGs, no JVD Respiratory: CTAB, no respiratory distress, No rales or wheezes Abdomen: Soft, non-tender, non-distended, normal bowel sounds, no guarding or rebound. Skin: Warm, dry, normal turgor, no rash MS/Extremity: Pulses equal, no cyanosis, neurovascular intact, FROM right great toe swelling at the base of the cuticle and blood underneath the nail and surrounding area. There is no obvious broken bone or open wounds Neuro: COAx4, GCS 15, strength 5/5, CN 2-12 intact, normal cerebellar exam, normal gait, Psych: Normal behavior, mood, and affect normal Extremities-trace edema without any palpable cords, Homans sign is negative Results (Laboratory/Radiology) Labs Reviewed?: Yes ED Course ED Course Orders Procedure Category Date Status Time Foot Comp 3+Vws Rt RAD 03/30/25 Taken 03:21 Ibuprofen 800 Mg Tab PHA 03/30/25 Complete (Motrin) 03:30 Toe(S) 2+Vws Rt RAD 03/30/25 Taken 03:40 Tetanus,Diphtheria PHA 03/30/25 Logged Tox [Adult] (Diphther 04:30 Current Medications Medications (Trade) Dose Ordered Sig/Margaret Route PRN Reason Start Time Stop Time Status Last Admin Dose Admin Ibuprofen (moTRIN) 800 mg ONCE ONCE PO 03/30/25 03:30 03/30/25 03:31 DC 03/30/25 03:28 Vital Signs Date Time Temp Pulse Resp B/P (MAP) Pulse Ox O2 Delivery O2 Flow Rate FiO2 03/30/25 03:14 97.0 66 20 132/71 97 Room Air We will perform imaging and administer medications according to the patient's complaint. Once the results are available, will review and personally interpreted the labs to rule out any acute life-threatening emergency the trach require immediate intervention and treatment. I will then re-evaluate the patient after treatment and diagnostic exams have return to determine whether the patient requires any further testing, can safely be discharged home or need further admission to hospital for additional treatment and evaluation. Medical Decision Making MDM Differential diagnosis: Nail injury, fracture of the great toe distal phalanx, dislocation of the interphalangeal joint, tear of the ligaments This is a morbidly obese 19-year-old male who stated that he sustained an injury to the right toe and developed swelling and pain also some bleeding just prior to presentation and hence he came into the ER for further evaluation. He was accompanied by his mother. He stated that when he was walking on the tile there was water and his right foot and toe got caught while he moved forward in the right great toe turned and all the weight fell on it. This caused injury to the great toe bone as well as the nail He never really got hurt anywhere else. No loss of consciousness not on any blood thinners. He denied drinking any alcohol. He is a marijuana user Temperature 96.9 pulse 66 respirations 20 blood pressure 132/71 with a pulse oximetry of 97% on room air X-ray of the right foot and also right great toe-no foreign body seen. I did not see any obvious displaced fracture Extensive cleaning of the right great toe was done and splinting was done. Tetanus shot Patient received a dose of ibuprofen. And on reassessment the great toe is dressed and a splint is placed I updated the patient and his grandmother that I would send a prescription to pharmacy Rationale: Tests considered and ordered secondary to shared decision making include: Previous outside records reviewed: Old ER visits. Risk of complication and/or morbidity or mortality of patient management: None Medications-Per medication reconciliation Need for hospitalization: Patient does not meet criteria for hospitalization. Need for emergency major/minor surgery: No There are no social concerns with this patient. Prescription drug management Prescriptions will include symptomatic care Patient's prior external medical records from other ER visits were reviewed by me as indicated. Prior testing and results from previous visits were reviewed. Prior tests were taken into account with medical decision making and resource utilization, independent historian/historians were used to obtain complete medical history. I independently interpreted the test that were performed, results were reviewed by me and considered findings on radiology if ordered. Medical management and examination interpretation discussions were had by me with other qualified healthcare professionals as indicated for the patient's care. Procedure Pre-Made Type: Aluminium Splint: Great toe Pre-Proc Neuro Vasc Exam: normal Post-Proc Neuro Vasc Exam: normal Progress The great toe was thoroughly cleaned with normal saline. Prepped and draped and dressing was applied following which a splint was placed. Problem List Problem List: (1) Superficial injury of skin of right great toe (2) Traumatic subungual hemorrhage of toe of right foot DX & DISP Disposition: Discharge Departure Impression: Primary Impression: Superficial injury of skin of right great toe Additional Impression: Traumatic subungual hemorrhage of toe of right foot Condition: Stable Scripts Cephalexin Monohydrate (Keflex) 500 Mg Cap 500 MG PO QID for 7 Days, #28 CAP Prov: HALI WAGNER MD 03/30/25 Additional Instructions: Patient and the caregiver have been informed of all the diagnostic tests and the imaging conducted during the today's visit to the emergency room and has verbalized understanding of the results I have personally reviewed and interpreted all diagnostic exams performed here in the ER today as well as the vital signs documented by the nursing staff. The patient is now being discharged to home and should follow up with the primary care physician or the specialist as directed by the ER staff. Follow-up with primary care provider in 1 to 2 days. Take medications as directed here in the emergency room. Okay to continue home medications unless otherwise discussed during your visit in the emergency room today. Return to your nearest emergency room if symptoms worsen or if there is no improvement. Call 911 if you need immediate assistance. Take Tylenol or Motrin [id number] as needed and if no contraindications are present. Increase oral hydration. A wound culture or urine culture was ordered here in the emergency room department please follow-up with primary care provider and advise them to get repeat ports from our facility. If you had any Joss wrap/splints that were applied here, please do not remove them until you see your primary care or specialty. Referrals: SELF,REFERRAL (PCP) HALI WAGNER MD Mar 30, 2025 03:23
[2025-03-30] MEDS ORDERED: CEPH500B PO (04:17)
--- NOTE | 2025-03-30 04:21 | HMCIMG ---
EXAM: CR Right Toes, 4 views. CLINICAL HISTORY: Pain. COMPARISON: Radiograph of the right foot dated 10/29/2014. FINDINGS: Minimally displaced acute transverse fracture around the base of the first toe distal phalanx with surrounding soft tissue swelling. The remaining bones and joints are within normal limits. IMPRESSION: Minimally displaced acute transverse fracture around the base of the first toe distal phalanx with surrounding soft tissue swelling. A new finding. /[place]
[2025-03-30 04:24] VITALS: BP 129/74; PULSE 70; RESP 18; TEMP 98.2; O2SAT 99
--- NOTE | 2025-03-30 04:26 | HMCIMG ---
EXAM: CR Right foot, 4 views. CLINICAL HISTORY: Pain. COMPARISON: Radiograph of the right foot dated 10/29/2014. FINDINGS: Minimally displaced acute transverse fracture around the base of the first toe distal phalanx with surrounding soft tissue swelling. The remaining bones and joints are within normal limits. IMPRESSION: Minimally displaced acute transverse fracture around the base of the first toe distal phalanx with surrounding soft tissue swelling. A new finding. /[place]
== END 2025-03-30 04:23 | disposition home or self-care (01) ==
LOC: EDH 03:12
DX: S92.421A Displaced fracture of distal phalanx of right great toe, initial encounter for closed fracture (principal); L60.8 Other nail disorders; J45.909 Unspecified asthma, uncomplicated; W18.39XA Other fall on same level, initial encounter; Y93.89 Activity, other specified; Y92.89 Other specified places as the place of occurrence of the external cause; Y99.8 Other external cause status
CPT/HCPCS: 29130; 73630; 73660; 90471; 90714; 99284